=== PATIENT | female | born 1945 | race Two or more races ===

== ENCOUNTER 2019-02-24 13:00 | Outpatient (CLI) | payer OTHER ==
[~2019-02-24 13:00] MED LIST: ASA325 M1; LOPRESSOR25 MG; MILLIPRED DP5 M1 PO; NABUMETONE750 MG PO
== END 2019-02-24 15:27 | disposition home or self-care (01) ==
LOC: RAD 13:00
DX: M25.561 Pain in right knee (principal); M25.562 Pain in left knee

== ENCOUNTER → 2019-03-17 | Outpatient (CLI) | payer OTHER | END | disposition home or self-care (01) | LOC: NUCLEAR 03-15 09:00 | DX: M25.561 Pain in right knee (principal); M25.461 Effusion, right knee; M79.662 Pain in left lower leg; M79.661 Pain in right lower leg ==

== ENCOUNTER → 2020-09-25 08:00 | Outpatient (CLI) | payer OTHER ==
[~2020-09-25 08:00] MED LIST changes: +COZAAR25 MG; +LASIX20 MG
== END | disposition home or self-care (01) ==
LOC: LAB 08:00 → EDSTATUS 10-01 08:30 → SURH 10-01 08:30
PROVIDERS: ATTEND Orthopaedic Surgery
DX: M13.861 Other specified arthritis, right knee (principal); Z03.818 Encounter for observation for suspected exposure to other biological agents ruled out; D68.8 Other specified coagulation defects; N39.0 Urinary tract infection, site not specified; E78.2 Mixed hyperlipidemia; R07.89 Other chest pain

== ENCOUNTER 2022-06-04 09:15 | Inpatient (IN) | payer OTHER ==
[~2022-06-04] VITALS: Ht 172.7 cm; Wt 113.4 kg
[2022-06-04] MEDS ORDERED: HYDRALAZINE HCL50 MG PO (10:57)
[2022-06-04] MEDS ORDERED: HYDROCHLOROTHIA25 MG PO (10:59)
[2022-06-04] MEDS ORDERED: AVAPRO75 MG PO (10:59)
[2022-06-04] MEDS ORDERED: CHLORTHALIDONE25 MG PO (11:00)
== END 2022-06-11 22:18 | disposition designated cancer center or children's hospital (05) | DRG 470 ==
LOC: SURH 06-09 07:00 → O/R 06-09 07:25 → SURH 06-09 07:25
PROVIDERS: ADMIT Orthopaedic Surgery; ATTEND Orthopaedic Surgery
PROC: 0SRC0J9 Replacement of Right Knee Joint with Synthetic Substitute, Cemented, Open Approach (ICD-10-PCS; principal; 2022-06-09 07:00)
PROC: 30233N1 Transfusion of Nonautologous Red Blood Cells into Peripheral Vein, Percutaneous Approach (ICD-10-PCS; 2022-06-10)
DX: M17.11 Unilateral primary osteoarthritis, right knee (principal); D62 Acute posthemorrhagic anemia; M85.661 Other cyst of bone, right lower leg; Z20.822 Contact with and (suspected) exposure to COVID-19; I10 Essential (primary) hypertension; E66.8 Other obesity; I73.89 Other specified peripheral vascular diseases